=== PATIENT | female | born 2000 | race Caucasian/White ===

== ENCOUNTER 2023-08-28 09:06 | Outpatient (CLI) | payer OTHER ==
[~2023-08-28] VITALS: Ht 167.6 cm; Wt 86.8 kg
[2023-08-28] MEDS ORDERED: LR 1,000 ML IV PRN (09:30)
[2023-08-28] MEDS ORDERED: FLONASEALLERGY NS (09:33)
[2023-08-28] MEDS ORDERED: ZYRTEC 10MG10 MG PO (09:33)
[2023-08-28] MEDS ORDERED: PRENATAL TABLET PO (09:33)
--- NOTE | 2023-08-28 09:41 | NUR ---
Pt arrives ambulatory to unit at 0910, changes into gown, EFM explained and placed, VS taken. Pt reports concerns of decreased movement, "I haven't felt him move since yesterday, maybe the day before". Pt reports occasional contractions she thinks are "practice contractions", denies leaking of fluid, denies vaginal bleeding. SVE 2/-3. FHR cat 1.
--- NOTE | 2023-08-28 10:00 | NUR ---
Dr. Herrera on unit, notified of pt and presenting concerns. FHR strip reviewed. Per physician, pt may go home with instructions on early labor. Pt given early labor handout, instructed to return to hospital if leaking fluid, vaginal bleeding, decrease in baby's movements, or regular strong contractions every 3-5 minutes. Pt and spouse verbalized understanding, leave unit ambulatory at 1015.
[2023-08-28 10:15] VITALS: BP 128/72; PULSE 91; TEMP 98.3
== END 2023-08-28 10:25 | disposition home or self-care (01) ==
LOC: LDRO 09:06
DX: O36.8130 Decreased fetal movements, third trimester, not applicable or unspecified (principal); O26.893 Other specified pregnancy related conditions, third trimester; E75.5 Other lipid storage disorders; Z3A.40 40 weeks gestation of pregnancy

== ENCOUNTER 2023-09-02 20:05 | Outpatient (CLI) | payer OTHER ==
[~2023-09-02] VITALS: Ht 167.6 cm; Wt 90.9 kg
[~2023-09-02 20:05] MED LIST: FLONASEALLERGY NS; PRENATAL TABLET PO; ZYRTEC 10MG10 MG PO
--- NOTE | 2023-09-02 20:20 | NUR ---
G2L0 at 40 weeks and 6 days arrives to unit with complaint of contractions every 5-10 minutes. Pt reports good movement, denies vaginal bleeding. Has had some spotting today. Denies problems this . Pt oriented to room, clean gown on, call light within reach, bed in low and locked position. US and toco explained and applied. Vitals obtained. Admission assessment started. SVE 3-4/70/-3, membranes intact
[2023-09-02 21:00] VITALS: BP 120/70; PULSE 104; TEMP 98.5
[2023-09-02] MEDS ORDERED: LR 1,000 ML IV PRN (21:00)
--- NOTE | 2023-09-02 21:40 | NUR ---
SVE unchanged from previous exam. Category 1 FHR tracing. Reviewed discharge plan with patient, verbalized understanding. Educated on return precautions. Pt seen ambulated off unit with spouse at 2200.
[2023-09-02 21:45] VITALS: BP 124/67; PULSE 88
== END 2023-09-02 22:00 | disposition home or self-care (01) ==
LOC: LDRO 20:05
DX: O47.1 False labor at or after 37 completed weeks of gestation (principal); Z3A.40 40 weeks gestation of pregnancy

== ENCOUNTER 2023-09-04 01:49 | Inpatient (IN) | payer OTHER ==
[~2023-09-04] VITALS: Ht 167.6 cm; Wt 90.9 kg
[2023-09-04] VITALS (18 sets, daily range): BP systolic 119–141; BP diastolic 57–80; PULSE 81–109; TEMP 97.9–98.3
--- NOTE | 2023-09-04 02:10 | NUR ---
Ambulatory to unit for labor assessment, accompanied by spouse. Oriented to room,monitor,plan of care. SVE 6+/100/-2, bloody show.
[2023-09-04] MEDS ORDERED: LR & Oxytocin 500 ML IV SCH (02:30)
[2023-09-04] MEDS ORDERED: LR 1,000 ML IV SCH (02:30)
[2023-09-04 02:45] LABS: HEMATOCRIT 37.4 % (37.0-47.0); HEMOGLOBIN 12.3 g/dl (12.5-16.0); MEAN CELL VOLUME 87 fl (80.0-100.0); MEAN CORPUSCULAR HEMOGLOBIN 29 pg (27-31); MEAN CORPUSCULAR HGB CONC 33 g/dl (33.0-37.0); MEAN PLATELET VOLUME 10.1 fl (7.4-10.4); PLATELET COUNT 237 K/mm3 (130-400); REDCELL DISTRIBUTION WIDTH-CV 13.4 % (11.5-14.5)
--- NOTE | 2023-09-04 02:51 | NUR ---
Off monitor, up to bathroom and to move around. Pt focussed pursed lip breathing with contractions, whimpers in between ctx. Pain medication discussed, pt states "I absolutely do not want an epidural" Explained to pt reason IV pain medication is not available at this state of labor. Pt verbalizes understanding.
[2023-09-04 03:03] LABS: BAND 6 % (0-10); LYMPHOCYTE 9 % (20.0-51.0); NEUTROPHILS 78 % (42.0-75.2); PLATELET ESTIMATE NORMAL (NORMAL)
--- NOTE | 2023-09-04 04:45 | NUR ---
SVE as noted, no bulging BOW, no free fluid illicitted with exam, scant pink tinged mucous on exam glove. Pt denies LOF or gush of fluid previously. Discussed with pt position changes, birthing ball or ambulating. Pt declines, stating "I did all that all day yesterday." Pt relaxes well in between contractions.
--- NOTE | 2023-09-04 07:00 | NUR ---
0644- EFM and TOCO on. Pt coping well with UCs but is exhausted. Takes coaching well, this RN remains at bedside. IV check by this RN.
--- NOTE | 2023-09-04 07:37 | NUR ---
0711- Pt assisted to RL with LLS. Pt requests monitor off. FHR categor I. 0723- Pt up to void, assisted by SO and this RN. 0728- Pt back to bed, sitting high fowlers. Continues to cope well with UCs. This RN remains at bedside with Pt.
--- NOTE | 2023-09-04 09:15 | NUR ---
0850- Pt not tolerating being RL, Assisted Pt to [place] in bed. This RN continues to be at bedside with Pt.
--- NOTE | 2023-09-04 09:45 | NUR ---
0925- Pt begins pushing with UCs in lithotomy position. This RN remains at bedside coaching Pt and monitoring strip. Dr Neil remains on unit.
--- NOTE | 2023-09-04 10:25 | NUR ---
1010- Mary Bales, rn hemodialysis charge, and Florencia nursery RN called to bedside for delivery. Pt continues pushing with UCs. Pt and room prepped for delivery. 1025- of viable male after approx. 30 second shoulder dystocia. placed on mother's abd where tended to by nursery RN. 2nd degree laceration and right labial tear repaired by MD. 1040- Spontaneous delivery of placenta. Pitocin started at 333ml/hr. Fundus massaged to firm by MD. Heavy bleeding noted with clots. Methergine given per VORRanjana. Bleeding improves but clots noted periodically in uterus by MD exam and moderate free-flow noted. Cytotec placed rectally by MD. Bleeding continues to improve over next 5-10 mins. Pericare completed by MD. Clean chux under Pt and ice pack to perineum. Pt tolerated fundal massage and repair well. Infant remains [id number] with mother.
[2023-09-04] MEDS ORDERED: Methylergonovine 0.2 MG/ML 1 ML AMPUL IM SCH (10:45)
[2023-09-04] MEDS ORDERED: miSOPROStol 200 MCG TAB PO SCH (10:52)
[2023-09-04] MEDS ORDERED: Magnes Hydrox (MOM) 80 MG/ML 30 ML CUP PO PRN (11:15)
[2023-09-04] MEDS ORDERED: Phenylephrine/Mineral Oil/Petrolatum 57 GM TUBE RC PRN (11:15)
[2023-09-04] MEDS ORDERED: Mag/Al Hydrox/Simeth Susp 30 ML CUP PO PRN (11:15)
[2023-09-04] MEDS ORDERED: Ibuprofen 800 MG TAB PO SCH (11:15)
[2023-09-04] MEDS ORDERED: Acetaminophen 500 MG TAB PO SCH (11:15)
[2023-09-04] MEDS ORDERED: Loratadine 10 MG TAB PO PRN (11:15)
[2023-09-04] MEDS ORDERED: Witch Hazel 50% Pads Bulk TUB TP PRN (11:15)
[2023-09-04] MEDS ORDERED: Measles/Mumps/Rubella Virus Vaccine Live w Diluent 0.5 ML VIAL SQ SCH (11:15)
[2023-09-04] MEDS ORDERED: Naloxone 0.4 MG/ML VIAL IV PRN (11:15)
[2023-09-04 12:35] LABS: TRICYCLIC ANTIDEPRESS URINE NEGATIVE (NEGATIVE)
--- NOTE | 2023-09-04 13:00 | NUR ---
Pt ambulates to bathroom with this RN standby assist. Voids without difficulty but with intermittent stream. Pericare completed and explained. Pt transfered to PP room via wheelchair due to maternal exhaustion. Pt oriented to room. Call light at bedside.
--- NOTE | 2023-09-04 13:30 | NUR ---
Pt report given to Perry Eaton RN, she assumes care at this time.
[2023-09-04] MEDS ORDERED: Sennosides/Docusate 8.6-50 MG TAB PO SCH (17:00)
[2023-09-04] MEDS ORDERED: traZODone 50 MG TAB PO PRN (21:00)
[2023-09-05] VITALS: BP 121/58; PULSE 95; TEMP 98.7
[2023-09-05 03:00] VITALS: BP 111/68; PULSE 100; TEMP 98.8
[2023-09-05 09:13] VITALS: BP 114/70; PULSE 88; TEMP 98
[2023-09-05] MEDS ORDERED: IBU800 M1 PO (09:38)
== END 2023-09-05 13:55 | disposition home or self-care (01) | DRG 807 ==
LOC: LDRO 01:49 → LDR 02:15 → OB 14:37
PROVIDERS: Obstetrics & Gynecology; Student in an Organized Health Care Education/Training Program; ADMIT Obstetrics & Gynecology
PROC: 10E0XZZ Delivery of Products of Conception, External Approach (ICD-10-PCS; principal; 2023-09-04)
PROC: 0KQM0ZZ Repair Perineum Muscle, Open Approach (ICD-10-PCS; 2023-09-04)
PROC: 0UQMXZZ Repair Vulva, External Approach (ICD-10-PCS; 2023-09-04)
DX: O48.0 Post-term pregnancy (principal); Z37.0 Single live birth; Z3A.41 41 weeks gestation of pregnancy; J45.909 Unspecified asthma, uncomplicated; O99.52 Diseases of the respiratory system complicating childbirth; O99.344 Other mental disorders complicating childbirth; F41.8 Other specified anxiety disorders; O75.81 Maternal exhaustion complicating labor and delivery; O70.1 Second degree perineal laceration during delivery; O66.0 Obstructed labor due to shoulder dystocia; O75.89 Other specified complications of labor and delivery
CPT/HCPCS: J2210; J2590; J7120